=== PATIENT | male | born 1955 | race Caucasian/White ===

== ENCOUNTER 2016-08-10 05:43 | Outpatient (CLI) | payer BC ==
[~2016-08-10] VITALS: Ht 185.4 cm; Wt 106.6 kg
[2016-08-10] MEDS ORDERED: CANA300T PO (12:37)
[2016-08-10] MEDS ORDERED: ALEN70TA2 PO (12:37)
[2016-08-10] MEDS ORDERED: ATOR10TA66 PO (12:37)
[2016-08-10] MEDS ORDERED: LISI-552 PO (12:37)
[2016-08-10] MEDS ORDERED: METF1000 PO (12:37)
== END 2016-08-10 12:42 ==
LOC: PREOP 05:43
PROVIDERS: ATTEND Otolaryngology Otolaryngology/Facial Plastic Surgery
DX: Z01.818 Encounter for other preprocedural examination (principal); L98.9 Disorder of the skin and subcutaneous tissue, unspecified

== ENCOUNTER 2016-08-13 06:57 | Day surgery (SDC) | payer BC ==
[~2016-08-13] VITALS: Ht 185.4 cm; Wt 106.6 kg
[~2016-08-13 06:57] MED LIST: ALEN70TA2 PO; ATOR10TA66 PO; CANA300T PO; LISI-552 PO; METF1000 PO
--- OUTSIDE RECORDS SUMMARY | 2016-08-13 07:00 | XMS REPORT | Continuity of Care Document ---
Author Author [facility] Organization [facility] Address Unknown Phone Unavailable Support Name Relationship Address Phone MAHAMED MURILLO MD Caregiver [address], [address] [place] [address] Insurance Providers Payer Name Policy Number Subscriber Name Relationship [facility] [id number] Ray Mack 17 Self / Same As Patient Advance Directives Directive Response Recorded Date/Time Advance Directives Yes 08/10/16 12:25pm Health Care Power of Training Specialist Y PA 08/10/16 12:25pm Organ Donor No 08/10/16 12:25pm Resuscitation Status Full Code 08/10/16 12:25pm Problems No problem information available. Medications Current Home Medications Medication Dose Units Route Directions Days/Qty Instructions Start Date Metformin Hcl 1,000 Mg 1,000 Mg Oral Twice A Day 08/10/16 Lisinopril 20 Mg 20 Mg Oral Daily 08/10/16 Alendronate Sodium 70 Mg 70 Mg Oral Weekly TAKES ON Wednesday08/10/16 Atorvastatin Calcium 10 Mg 10 Mg Oral M,W,F, 08/10/16 Canagliflozin 300 Mg 300 Mg Oral Daily 08/10/16 Social History Social History Problem Response Recorded Date/Time Alcohol Use Rarely Uses 08/10/2016 12:25pm Recreational Drug Use No 08/10/2016 12:25pm Recent Foreign Travel No 08/10/2016 12:25pm Recent Infectious Disease Exposure No 08/10/2016 12:25pm Smoking Status Never a Smoker 08/10/2016 12:25pm Recent Hopitalizations No 08/10/2016 12:25pm Query Response Start Date Stop Date Smoking Status Never a Smoker Hospital Discharge Instructions No hospital discharge instructions. Plan of Care Discharge Date 08/10/16 12:42pm Prescriptions See Medication Section Functional Status No functional status results. Allergies, Adverse Reactions, Alerts No known allergies. Immunizations No immunization records. Vital Signs Acute Vital Signs Vital Response Date/Time Height (Feet) 6 feet 08/10/2016 12:24pm Height (Inches) 1.00 inches 08/10/2016 12:24pm Height (Calculated Centimeters) 185.187240 cm 08/10/2016 12:24pm Weight (Pounds) 235 pounds 08/10/2016 12:24pm Weight (Ounces) 0.0 oz 08/10/2016 12:24pm Weight (Calculated Grams) 662649.21 gm 08/10/2016 12:24pm Weight (Calculated Kilograms) 106.959014 kilograms 08/10/2016 12:24pm Calculated BMI 31.0 08/10/2016 12:24pm Results No known relevant diagnostic tests, laboratory data and/or discharge summary. Procedures No known history of procedures. Encounters Encounter Location Arrival/Admit Date Discharge/Depart Date Attending Provider Registered Clinic [facility] 08/10/16 5:43am MAHAMED MURILLO MD
--- OUTSIDE RECORDS SUMMARY | 2016-08-13 07:00 | XMS REPORT | Continuity of Care Document ---
Author Author [facility] Organization [facility] Address Unknown Phone Unavailable Support Name Relationship Address Phone MAHAMED MURILLO MD Caregiver [address], [address] [place] [address] Insurance Providers Payer Name Policy Number Subscriber Name Relationship [facility] [id number] Ray Mack 17 Self / Same As Patient Advance Directives Directive Response Recorded Date/Time Advance Directives Yes 08/10/16 12:25pm Health Care Power of Wired Sweatband Cutter Y PA 08/10/16 12:25pm Organ Donor No [...] 1.00 inches 08/10/2016 12:24pm Height (Calculated Centimeters) 185.943219 cm 08/10/2016 12:24pm Weight (Pounds) 235 pounds 08/10/2016 12:24pm Weight (Ounces) 0.0 oz 08/10/2016 12:24pm Weight (Calculated Grams) 303236.21 gm 08/10/2016 12:24pm Weight (Calculated Kilograms) 106.343333 kilograms 08/10/2016 12:24pm Calculated BMI 31.0 08/10/2016 12:24pm Results No known relevant diagnostic tests, laboratory data and/or discharge summary. Procedures No known history of procedures. Encounters Encounter Location Arrival/Admit Date Discharge/Depart Date Attending Provider Registered Clinic [facility] 08/10/16 5:43am MAHAMED MURILLO MD
[2016-08-13 07:15] VITALS: BP 134/89
[2016-08-13] MEDS: LACTATED RINGERS 1,000 ML IV PRN ×2 (07:21→09:15)
[2016-08-13] MEDS ORDERED: proPOfol 200 MG/20 ML (DIPRIVAN) VIAL IV ONE (08:01)
[2016-08-13] MEDS ORDERED: fentaNYL INJECTION 100 MCG/2 ML AMP ONE (08:01)
[2016-08-13] MEDS ORDERED: MIDAZOLAM 2 MG/2 ML (VERSED) VIAL ONE (08:01)
[2016-08-13] MEDS ORDERED: ONDANSETRON 4 MG/2 ML (SDV) Z0FRAN ONE (08:01)
[2016-08-13] MEDS ORDERED: LACTATED RINGERS 1,000 ML IV ONE ×2 (08:07→10:38)
[2016-08-13] MEDS ORDERED: LIDOCAINE/EPI 1%-1:100,000 (XYLOCAINE) 20ML ONE (08:08)
--- NOTE | 2016-08-13 08:36 | Progress Note-Pre Operative ---
Pre-Operative Progress Note H&P Reviewed The H&P was reviewed, patient examined and no changes noted. Date H&P Reviewed: Aug 13, 2016 Time H&P Reviewed: 08:00 Pre-Operative Diagnosis: Left Ear Lesion MAHAMED MURILLO MD Aug 13, 2016 8:36 am
[2016-08-13] MEDS ORDERED: MUPIROCIN 2% OINT 22 GM (BACTROBAN) TUBE ONE (09:29)
[2016-08-13] MEDS ORDERED: SEVOFLURANE (ULTANE) 15 ML INHAL SOLN ONE (10:38)
--- NOTE | 2016-08-13 10:38 | Progress Note-Post Operative ---
Post-Operative Progess Note Pre-Operative Diagnosis Left Ear Lesion Post-Operative Diagnosis same Post-Op Procedure Note Date of Procedure: Aug 13, 2016 Name of Procedure: Excsion of Left EAr Timothy dorado Multiple Frozen sectiosn and REconstruction with FTSg-Donbor Site Left neck Anesthesia Type get Estimated blood loss (mL): minimal Specimen(s) collected left ear lesion MAHAMED MURILLO MD Aug 13, 2016 10:38 am
[2016-08-13] MEDS ORDERED: HYDROcodone/APAP 5 MG/325 MG (LORTAB) TAB PO PRN (10:45)
[2016-08-13] MEDS ORDERED: ACETAMINOPHEN 325 MG TABLET/CAPLET (TYLENOL) PO PRN (10:45)
[2016-08-13] MEDS ORDERED: ONDANSETRON 4 MG/2 ML (SDV) Z0FRAN IV PRN (10:45)
[2016-08-13] MEDS ORDERED: morphine INJ 10 MG/ML 1ML (SYR OR VIAL) IV PRN (10:45)
[2016-08-13] MEDS ORDERED: CEPH-507 PO (11:20)
[2016-08-13] MEDS ORDERED: HYDR-3812 PO (11:20)
[2016-08-13 11:30] VITALS: BP 138/77
[2016-08-13 12:00] VITALS: BP 135/64
== END 2016-08-13 12:20 | disposition home or self-care (01) ==
LOC: SDC 06:57
PROVIDERS: ATTEND Otolaryngology Otolaryngology/Facial Plastic Surgery
DX: C44.219 Basal cell carcinoma of skin of left ear and external auricular canal (principal); E11.9 Type 2 diabetes mellitus without complications; Z79.84 Long term (current) use of oral hypoglycemic drugs
CPT/HCPCS: 82962; 87081; 88305; 88331; 88332

== ENCOUNTER 2018-06-16 05:23 | Outpatient (CLI) | payer BC ==
[~2018-06-16] VITALS: Ht 185.4 cm; Wt 106.6 kg
[~2018-06-16 05:23] MED LIST changes: +ACHD5005 PO; +CEPH-507 PO; +METF-399 PO; -METF1000 PO
== END 2018-06-16 11:09 | disposition home or self-care (01) ==
LOC: PREOP 05:23
PROVIDERS: ATTEND Otolaryngology Otolaryngology/Facial Plastic Surgery
DX: Z01.818 Encounter for other preprocedural examination (principal)